=== PATIENT | female | born 1950 | race African-American/Black ===

== ENCOUNTER 2021-09-10 15:27 | Observation (INO) ==
[2021-09-10] MEDS ORDERED: DILTIAZEM 25 MG/5 ML VIAL IV STA (16:06)
[2021-09-10] MEDS ORDERED: ASPIRIN 325 MG TABLET PO STA (16:06)
[2021-09-10 16:07] LABS: Basophils # 0.1 10*3/uL (0.0-0.2); Basophils % 0.7 % (0.0-0.8); Eosinophils # 0.1 10*3/uL (0.0-0.87); Eosinophils % 1.1 % (0.00-10.9); Hematocrit 43.1 VOL% (35.7-47.0); Hemoglobin 13.7 GM/DL (12.0-16.0); Immature Granulocytes % 0.4 %; Immature Granulocytes Absolute 0.03 #; Lymphocytes # 2.1 10*3/uL (1.4-4.0); Lymphocytes % 29.5 % (21.3-54.2); Mean Corpuscular HGB Conc 31.8 GM/DL (32-36); Mean Corpuscular Volume 92.9 FL (87-102); Mean Platelet Volume 10.6 FL (9.6-12.0); Monocytes # 0.7 10*3/uL (0.11-0.8); Monocytes % 10.3 % (1.7-12.7); Platelet Count 343 T/CUMM (130-400); Red Blood Count 4.64 MC/CUMM (3.8-5.5); White Blood Count 7.2 T/CUMM (4-12)
[2021-09-10 16:17] LABS: INR 1.5; PT Patient Result 16.4 SECS (10.5-12.0); Partial Thromboplastin Time 38.9 SECS (23.7-32.9)
[2021-09-10] MEDS: DILTIAZEM INJ 100 MG in SODIUM CHLORIDE 0.9% 100 ML IV SCH (16:25)
[2021-09-10 16:32] LABS: Albumin 3.6 G/DL (3.4-5.0); Bilirubin,Total 1.6 MG/DL (0.20-1.00); Calcium 9.3 MG/DL (8.5-10.1); Osmolality,Calculated 283.1 MOS/KG (273-304); Total Protein 7.7 G/DL (6.4-8.2)
[2021-09-10] MEDS: ALBUTEROL 2.5 MG/3 ML NEB RESP TX SCH (20:05)
[2021-09-10] MEDS: APIXABAN 5 MG TABLET PO SCH (21:04)
[2021-09-10] MEDS: ACETAMINOPHEN 325 MG TABLET PO PRN (21:44)
[2021-09-11] MEDS: ALBUTEROL 2.5 MG/3 ML NEB RESP TX SCH ×4 (01:23→19:07)
[2021-09-11] MEDS: DILTIAZEM INJ 100 MG in SODIUM CHLORIDE 0.9% 100 ML IV SCH (01:35)
[2021-09-11 05:20] LABS: Basophils % 0.6 % (0.0-0.8); Eosinophils # 0.1 10*3/uL (0.0-0.87); Eosinophils % 2.4 % (0.00-10.9); Hematocrit 37.2 VOL% (35.7-47.0); Hemoglobin 12.1 GM/DL (12.0-16.0); Immature Granulocytes % 0.4 %; Immature Granulocytes Absolute 0.02 #; Lymphocytes # 1.5 10*3/uL (1.4-4.0); Mean Corpuscular HGB Conc 32.5 GM/DL (32-36); Mean Corpuscular Volume 91.4 FL (87-102); Mean Platelet Volume 11.4 FL (9.6-12.0); Monocytes # 0.7 10*3/uL (0.11-0.8); Neutrophils % 48.6 % (38.7-73.9); Platelet Count 280 T/CUMM (130-400); Red Blood Count 4.07 MC/CUMM (3.8-5.5); Red Cell Distribution Width 13.9 % (9.3-17.3); White Blood Count 4.7 T/CUMM (4-12)
[2021-09-11 05:38] LABS: Calcium 8.8 MG/DL (8.5-10.1); Potassium 2.8 MMOL/L (3.5-5.1)
[2021-09-11 05:48] LABS: Albumin 3.3 G/DL (3.4-5.0); Bilirubin,Direct 0.4 MG/DL (0.0-0.20); Bilirubin,Indirect 0.8 MG/DL (0.0-1.0); Bilirubin,Total 1.2 MG/DL (0.20-1.00)
[2021-09-11] MEDS ORDERED: POTASSIUM CHLORIDE 20 MEQ TABLET PO ONE ×2 (07:15→10:15)
[2021-09-11] MEDS: PANTOPRAZOLE 40 MG TABLET PO SCH (08:59)
[2021-09-11] MEDS: APIXABAN 5 MG TABLET PO SCH ×2 (08:59→20:10)
[2021-09-11] MEDS: LOSARTAN 50 MG TABLET PO SCH (08:59)
[2021-09-11] MEDS ORDERED: DILTIAZEM 30 MG TABLET PO SCH (09:00)
[2021-09-11] MEDS ORDERED: carvediloL 6.25 MG TABLET PO SCH (09:00)
[2021-09-11] MEDS ORDERED: hydroCHLOROthiazide 25 MG TABLET PO SCH (09:00)
[2021-09-11] MEDS ORDERED: LOSARTAN 50 MG TABLET PO SCH (09:00)
[2021-09-11] MEDS ORDERED: DILTIAZEM CD 120 MG CAPSULE PO SCH (10:00)
[2021-09-11] MEDS ORDERED: POTASSIUM BICARB EFFERVESCENT 20 MEQ TAB.EFF PO ONE ×2 (10:32→16:00)
[2021-09-11 11:53] LABS: Free T4 (Free Thyroxine) 1.23 NG/DL (0.76-1.46)
[2021-09-12] MEDS: ALBUTEROL 2.5 MG/3 ML NEB RESP TX SCH ×3 (00:05→13:55)
[2021-09-12 05:10] LABS: Basophils % 0.8 % (0.0-0.8); Eosinophils # 0.2 10*3/uL (0.0-0.87); Eosinophils % 5.1 % (0.00-10.9); Hemoglobin 12.3 GM/DL (12.0-16.0); Immature Granulocytes % 0.3 %; Immature Granulocytes Absolute 0.01 #; Lymphocytes # 1.6 10*3/uL (1.4-4.0); Lymphocytes % 40.2 % (21.3-54.2); Mean Corpuscular HGB Conc 32.4 GM/DL (32-36); Mean Corpuscular Volume 93.4 FL (87-102); Monocytes # 0.6 10*3/uL (0.11-0.8); Monocytes % 14.1 % (1.7-12.7); Neutrophils % 39.5 % (38.7-73.9); Platelet Count 269 T/CUMM (130-400); Red Blood Count 4.07 MC/CUMM (3.8-5.5); Red Cell Distribution Width 14.1 % (9.3-17.3)
[2021-09-12 05:31] LABS: Potassium 3.5 MMOL/L (3.5-5.1)
[2021-09-12] MEDS: PANTOPRAZOLE 40 MG TABLET PO SCH (08:23)
[2021-09-12] MEDS: APIXABAN 5 MG TABLET PO SCH (08:23)
[2021-09-12] MEDS: LOSARTAN 50 MG TABLET PO SCH (08:23)
[2021-09-12] MEDS ORDERED: DILTIAZEM CD 180 MG CAPSULE PO SCH (09:00)
[2021-09-12] MEDS ORDERED: DILTIAZEM CD 240 MG CAPSULE PO SCH (09:00)
[2021-09-12] MEDS ORDERED: POTASSIUM CHLORIDE 20 MEQ TABLET PO ONE (09:38)
[2021-09-12] MEDS ORDERED: DILTIAZEM 60 MG TABLET PO ONE (09:53)
[2021-09-12] MEDS ORDERED: POTASSIUM BICARB EFFERVESCENT 20 MEQ TAB.EFF PO ONE (09:54)
[2021-09-12] MEDS ORDERED: ASCORBIC ACID 500 MG TABLET PO SCH (10:00)
[2021-09-12 12:22] VITALS: BP 157/89
[2021-09-12] MEDS: ACETAMINOPHEN 325 MG TABLET PO PRN (13:40)
== END 2021-09-12 16:19 | disposition home health service (06) ==
LOC: N.ED 15:27 → N.TELES 15:27 → SUATTDRO 09-11 08:29
PROVIDERS: ADMIT Internal Medicine; ATTEND Internal Medicine

== ENCOUNTER 2022-01-30 09:40 | Observation (INO) ==
[2022-01-30] MEDS ORDERED: ASPIRIN 325 MG TABLET PO STA (10:22)
[2022-01-30] MEDS ORDERED: FUROSEMIDE 40 MG/4 ML VIAL IV STA (10:23)
[2022-01-30] MEDS ORDERED: DILTIAZEM 25 MG/5 ML VIAL IV STA (10:23)
[2022-01-30 11:30] LABS: Basophils % 0.2 % (0.0-0.8); Hematocrit 42.3 VOL% (35.7-47.0); Hemoglobin 13.6 GM/DL (12.0-16.0); Immature Granulocytes % 0.3 %; Immature Granulocytes Absolute 0.02 #; Lymphocytes # 0.8 10*3/uL (1.4-4.0); Lymphocytes % 13.7 % (21.3-54.2); Mean Corpuscular HGB Conc 32.2 GM/DL (32-36); Mean Corpuscular Volume 91.8 FL (87-102); Mean Platelet Volume 10.9 FL (9.6-12.0); Monocytes # 0.6 10*3/uL (0.11-0.8); Monocytes % 10.8 % (1.7-12.7); Platelet Count 217 T/CUMM (130-400); Red Blood Count 4.61 MC/CUMM (3.8-5.5); Red Cell Distribution Width 14.3 % (9.3-17.3); White Blood Count 5.8 T/CUMM (4-12)
[2022-01-30 11:47] LABS: Albumin 3.5 G/DL (3.4-5.0); Calcium 8.9 MG/DL (8.5-10.1); Osmolality,Calculated 280.4 MOS/KG (273-304); Potassium 3.5 MMOL/L (3.5-5.1); Total Protein 6.9 G/DL (6.4-8.2)
[2022-01-30 13:02] LABS: Mucus,Urine Moderate /LPF (Occasional); RBC,Urine 1 /HPF (0-4); Squamous Epithelial Cell,Urine Occasional /HPF (0-10)
[2022-01-30 13:03] LABS: Bilirubin,Urine Negative (Negative); Blood, Urine Negative (Negative); Glucose,Urine (UA) Negative (Negative); Ketones,Urine Trace mg/dL (Negative); Nitrite,Urine Negative (Negative); Protein,Urine 100 mg/dL (Negative); Urine Appearance Clear (Clear); Urine Color Yellow (Yellow); Urine Urobilinogen 0.2 eU/dL (<2.0)
[2022-01-30] MEDS ORDERED: ACETAMINOPHEN 325 MG TABLET PO PRN (13:19)
[2022-01-30] MEDS ORDERED: ALBUTEROL 2.5 MG/3 ML NEB RESP TX PRN (13:20)
[2022-01-30] MEDS ORDERED: METOPROLOL TARTRATE 5 MG/5 ML VIAL IV PRN (13:23)
[2022-01-30] MEDS ORDERED: hydrALAZINE 20 MG/1 ML VIAL IV PRN (13:24)
[2022-01-30] MEDS ORDERED: INFLUENZA VIRUS VACCINE 0.5 ML SYRINGE IM ONE (15:35)
[2022-01-30 15:57] LABS: Free T4 (Free Thyroxine) 1.39 NG/DL (0.76-1.46)
[2022-01-30] MEDS: APIXABAN 5 MG TABLET PO SCH (20:31)
[2022-01-30] MEDS: GABAPENTIN 400 MG CAPSULE PO SCH (21:42)
[2022-01-31 05:30] LABS: Basophils % 0.4 % (0.0-0.8); Eosinophils % 0.2 % (0.00-10.9); Hematocrit 39.8 VOL% (35.7-47.0); Hemoglobin 13.1 GM/DL (12.0-16.0); Immature Granulocytes % 0.2 %; Immature Granulocytes Absolute 0.01 #; Lymphocytes # 1.4 10*3/uL (1.4-4.0); Lymphocytes % 30.1 % (21.3-54.2); Mean Corpuscular HGB Conc 32.9 GM/DL (32-36); Mean Corpuscular Volume 90.9 FL (87-102); Mean Platelet Volume 11.5 FL (9.6-12.0); Monocytes # 0.8 10*3/uL (0.11-0.8); Monocytes % 16.7 % (1.7-12.7); Neutrophils % 52.4 % (38.7-73.9); Platelet Count 220 T/CUMM (130-400); Red Blood Count 4.38 MC/CUMM (3.8-5.5); Red Cell Distribution Width 14.1 % (9.3-17.3); White Blood Count 4.8 T/CUMM (4-12)
[2022-01-31 05:55] LABS: Band Neutrophils 1 % (0-10); Lymphocytes 35 % (20-55); Platelet Estimate Adequate; Total Cells Counted 100
[2022-01-31 06:03] LABS: Calcium 9.1 MG/DL (8.5-10.1); Osmolality,Calculated 283.1 MOS/KG (273-304); Potassium 3.2 MMOL/L (3.5-5.1)
[2022-01-31] MEDS ORDERED: POTASSIUM CHLORIDE 20 MEQ TABLET PO ONE ×2 (07:31→15:38)
[2022-01-31] MEDS: DILTIAZEM CD 180 MG CAPSULE PO SCH (08:36)
[2022-01-31] MEDS: APIXABAN 5 MG TABLET PO SCH ×2 (08:37→21:11)
[2022-01-31] MEDS: LOSARTAN 50 MG TABLET PO SCH (08:38)
[2022-01-31] MEDS ORDERED: METOPROLOL SUCCINATE XL 25 MG TABLET PO SCH (09:00)
[2022-01-31] MEDS ORDERED: AMIODARONE 200 MG TABLET PO SCH ×3 (09:00→21:00)
[2022-01-31] MEDS ORDERED: METOPROLOL SUCCINATE XL 25 MG TABLET PO ONE (11:59)
[2022-01-31] MEDS ORDERED: AMIODARONE 200 MG TABLET PO ONE (12:19)
[2022-01-31] MEDS: GABAPENTIN 400 MG CAPSULE PO SCH (21:12)
[2022-02-01 05:31] LABS: Basophils % 0.6 % (0.0-0.8); Eosinophils # 0.1 10*3/uL (0.0-0.87); Eosinophils % 2.8 % (0.00-10.9); Hematocrit 44.1 VOL% (35.7-47.0); Hemoglobin 14.1 GM/DL (12.0-16.0); Immature Granulocytes % 0.3 %; Immature Granulocytes Absolute 0.01 #; Lymphocytes # 1.5 10*3/uL (1.4-4.0); Lymphocytes % 41.2 % (21.3-54.2); Mean Corpuscular Volume 92.6 FL (87-102); Mean Platelet Volume 11.7 FL (9.6-12.0); Monocytes # 0.6 10*3/uL (0.11-0.8); Monocytes % 16.7 % (1.7-12.7); Neutrophils % 38.4 % (38.7-73.9); Platelet Count 233 T/CUMM (130-400); Red Blood Count 4.76 MC/CUMM (3.8-5.5); White Blood Count 3.5 T/CUMM (4-12)
[2022-02-01 05:52] LABS: Calcium 9.3 MG/DL (8.5-10.1); Osmolality,Calculated 286.1 MOS/KG (273-304); Potassium 3.3 MMOL/L (3.5-5.1)
[2022-02-01 05:57] LABS: Eosinophils 6 % (0-10); Lymphocytes 36 % (20-55); Platelet Estimate Normal; Total Cells Counted 100
[2022-02-01] MEDS ORDERED: POTASSIUM CHLORIDE 20 MEQ TABLET PO ONE ×2 (07:31→09:56)
[2022-02-01] MEDS ORDERED: METOPROLOL SUCCINATE XL 50 MG TABLET PO SCH (09:00)
[2022-02-01] MEDS ORDERED: METOPROLOL SUCCINATE XL 100 MG TABLET PO SCH (09:00)
[2022-02-01] MEDS: DILTIAZEM CD 180 MG CAPSULE PO SCH (10:18)
[2022-02-01] MEDS: LOSARTAN 50 MG TABLET PO SCH (10:18)
[2022-02-01] MEDS: APIXABAN 5 MG TABLET PO SCH (10:20)
[2022-02-01] MEDS ORDERED: SPIRONOLACTONE 25 MG TABLET PO SCH (11:00)
[2022-02-01] MEDS ORDERED: DAPAGLIFLOZIN 10 MG TABLET PO SCH (11:00)
[2022-02-01 14:57] VITALS: BP 143/82
[2022-02-01] MEDS ORDERED: SACUBITRIL/VALSARTAN 49-51 MG TABLET PO SCH (21:00)
== END 2022-02-01 15:55 | disposition home health service (06) ==
LOC: N.ED 09:40 → N.EDINP 09:40 → N.2W 14:14 → N.TELES 02-01 06:29
PROVIDERS: ADMIT Internal Medicine; ATTEND Internal Medicine